=== PATIENT | female | born 1950 | race Hispanic/Latino ===

== ENCOUNTER 2019-12-12 12:42 | Emergency (ER) | payer MEDICARE ==
[~2019-12-12] VITALS: Ht 154.9 cm; Wt 85.8 kg
[2019-12-12] MEDS ORDERED: HYDROXYUREA500 MG (13:25)
[2019-12-12] MEDS ORDERED: ASPIRIN EC81 MG PO (13:25)
[2019-12-12] MEDS ORDERED: LOSARTAN POTAS100 MG PO (13:25)
[2019-12-12] MEDS ORDERED: HYDROCHLOROTHIA25 MG (13:25)
[2019-12-12] MEDS ORDERED: HYDROCODONE/APAP 5MG-325MG TAB PO ONE (13:30)
[2019-12-12] MEDS ORDERED: KETOROLAC TROMETHAMINE 60 MG/2 ML VIAL IM ONE (13:30)
--- NOTE | 2019-12-12 13:52 | Emergency Department Note ---
History of Present Illnes History of Present Illness Chief Complaint: rgt lbp radiating to buttock History of Present Illness This is a 69 year old female. was doing well prior to this. Historian: Patient Arrival Mode: Car Additional Treatment CARBU[employer]OR MECH[employer]IC: 0920 1000mg tylenol History limited by: condition of the patient Central Office Associate Required: No Onset (how long ago): day(s) (3) Location: rgt lower back Quality: sharp Radiation: Denies non-radiation Severity: moderate Onset quality: gradual Duration (how long): day(s) (3) Timing of current episode: constant Progression: worsening Chronicity: new Context: Denies recent illness, Denies recent surgery, Denies recent immobilization, Denies recent travel, Denies trauma/injury, Denies new medications, Denies hx of DVT/PE, Denies non-compliance w/ medications Relieving factors: none Exacerbating factors: movement Associated symptoms: Reports denies other symptoms Treatments prior to arrival: none Past Medical/Family History Physician Review I have reviewed the patient's past medical and family history. Any updates have been documented here. Past Medical History Recent Fever: No Clinical Suspicion of Infectio: No New/Unexplained Change in Ment: No Past Medical History: Hypertension, Cancer Other Medical History: Right eye lymphoma Thrombocytopenia Cancer of white blood cells Past Surgical History: Cholecysctectomy, Appendectomy Other Surgery: pilonidal cyst Social History Smoking Cessation: Never Smoker Counseling Performed: No Alcohol Use: None Any Illegal Drug Use: No Physically hurt or threatened: No Other Any Pre-Existing Lines (PICC,: No Review of Systems Review of Systems Constitutional: Reports no symptoms EENTM: Reports no symptoms Cardiovascular: Reports no symptoms Respiratory: Reports no symptoms Gastrointestinal: Reports no symptoms Genitourinary: Reports no symptoms Musculoskeletal: Reports as per HPI, Reports back pain Integumentary: Reports no symptoms Neurological: Reports no symptoms Psychological: Reports no symptoms Endocrine: Reports no symptoms Hematological/Lymphatic: Reports no symptoms Review of other systems: All other systems negative Physical Exam Related Data Allergies: Coded Allergies: No Known Allergies (Unverified , 12/12/19) Triage Vital Signs Vital Signs Date Time Temp Pulse Resp B/P (MAP) Pulse Ox O2 Delivery O2 Flow Rate FiO2 12/12/19 12:47 98.8 105 16 191/95 97 Room Air Physical Exam CONSTITUTIONAL Constitutional: Present well-developed, Present well-nourished HENT HENT: Present normocephalic, Present atraumatic, Present oropharynx clear/moist, Present nose normal HENT L/R: Present left ext ear normal, Present right ext ear normal EYES Eyes: Reports PERRL, Reports conjunctivae normal NECK Neck: Present ROM normal PULMONARY Pulmonary: Present effort normal, Present breath sounds normal CARDIOVASCULAR Cardiovascular: Present regular rhythm, Present heart sounds normal, Present capillary refill normal, Present normal rate GASTROINTESTINAL Abdominal: Present soft, Present nontender, Present bowel sounds normal GENITOURINARY Genitourinary: Present exam deferred SKIN Skin: Present warm, Present dry MUSCULOSKELETAL Musculoskeletal: Present ROM normal, Present tenderness (RGT CVA TENDERNESS) NEUROLOGICAL Neurological: Present alert, Present oriented x 3, Present no gross motor or sensory deficits PSYCHOLOGICAL Psychological: Present mood/affect normal, Present judgement normal Results Laboratory Lab results reviewed: Yes Laboratory comments ua= +andre Assessment & Plan Medical Decision Making MDM sciatica, uti Reassessment Reassessment time: 14:44 Reassessment pain has decreased Assessment & Plan Final Impression: (1) Sciatic nerve pain (2) UTI (urinary tract infection) Depart Disposition: HOME, SELF-CARE Last Vital Signs Date Time Temp Pulse Resp B/P (MAP) Pulse Ox O2 Delivery O2 Flow Rate FiO2 12/12/19 12:47 98.8 105 16 191/95 97 Room Air Home Meds Active Scripts Sulfamethoxazole/Trimethoprim (BACTRIM DS TABLET) 1 Each Tablet, 1 TAB PO Q12H, #20 TAB Prov:ZAHIDA TARIQ 12/12/19 Cyclobenzaprine Hcl (FLEXERIL) 5 Mg Tablet, 10 MG PO Q8H PRN for SEVERE PAIN (7- 10), #20 TAB TAKE AFTER PREDNISONE TO CONTROL PAIN IF NEED BE Prov:ZAHIDA TARIQ 12/12/19 Prednisone (PREDNISONE) 20 Mg Tab, 60 MG PO DAILY PRN for MODERATE PAIN (4-6), #15 TAB take 3 20 mg pills all at once Prov:ZAHIDA TARIQ 12/12/19 Ondansetron (ONDANSETRON ODT) 8 Mg Tab.rapdis, 4 MG PO Q4HR PRN for NAUSEA AND VOMITING, #30 TAB Prov:ZAHIDA TARIQ 12/12/19 Reported Medications Aspirin (ASPIRIN EC) 81 Mg Tablet.dr, 81 MG PO DAILY, #30 TAB 12/12/19 Losartan Potassium (LOSARTAN POTASSIUM) 100 Mg Tablet, 100 MG PO DAILY, TAB 12/12/19 Hydrochlorothiazide (HYDROCHLOROTHIAZIDE) 25 Mg Tablet, 25 MG DAILY, #30 TAB 12/12/19 Hydroxyurea (HYDROXYUREA) 500 Mg Capsule, DAILY 12/12/19 Medications in the ED Ketorolac Tromethamine 60 mg ONCE ONCE IM ; Start 12/12/19 at 13:30; Stop 12/12/19 at 13:31 Acetaminophen/ Hydrocodone Bitart 1 ea ONCE ONCE PO ; Start 12/12/19 at 13:30; Stop 12/12/19 at 13:31 ZAHIDA TARIQ Dec 12, 2019 13:52
[2019-12-12] MEDS ORDERED: KETOROLAC TROMETHAMINE 60 MG/2 ML VIAL ONE (14:21)
[2019-12-12] MEDS ORDERED: ONDANSETRON HCL 4 MG ORAL DISINTEGRATING TAB ONE (14:21)
[2019-12-12] MEDS ORDERED: HYDROCODONE/APAP 5MG-325MG TAB ONE (14:22)
[2019-12-12] MEDS ORDERED: ONDANSETRON HCL 4 MG ORAL DISINTEGRATING TAB PO ONE (14:30)
[2019-12-12] MEDS ORDERED: ONDANSETRON ODT8 MG PO (14:50)
[2019-12-12] MEDS ORDERED: CYCLOBENZAPRINE5 MG PO (14:50)
[2019-12-12] MEDS ORDERED: PREDNISONE20 MG PO (14:50)
[2019-12-12] MEDS ORDERED: BACTRIM DS TAB1 EACH PO (14:50)
[2019-12-12 15:30] VITALS: BP 177/90
== END 2019-12-12 15:07 | disposition home or self-care (01) ==
LOC: FSED 12:42
DX: M54.41 Lumbago with sciatica, right side (principal); N39.0 Urinary tract infection, site not specified; I10 Essential (primary) hypertension; D69.6 Thrombocytopenia, unspecified; Z85.72 Personal history of non-Hodgkin lymphomas
CPT/HCPCS: 81003; 96372; 99283

== ENCOUNTER 2024-01-06 18:53 | Emergency (ER) | payer MEDICARE ==
[~2024-01-06] VITALS: Ht 154.9 cm; Wt 90.7 kg
[~2024-01-06 18:53] MED LIST: ASPIRIN EC81 MG PO; BACTRIM DS TAB1 EACH PO; CYCLOBENZAPRINE5 MG PO; HYDROCHLOROTHIA25 MG; HYDROXYUREA500 MG; LOSARTAN POTAS100 MG PO; ONDANSETRON ODT8 MG PO; PREDNISONE20 MG PO
[2024-01-06] MEDS: CEPHALEXIN MONOHYDRATE 250 MG CAP PO ONE (20:12)
[2024-01-06] MEDS: BACITRACIN ZINC 0.9GM TP ONE (20:13)
[2024-01-06] MEDS: LIDOCAINE HCL 1% LOCAL INJ 20 ML VIAL INJ ONE (20:13)
[2024-01-06] MEDS ORDERED: CEPHALEXIN500 MG PO (20:51)
[2024-01-06] MEDS ORDERED: MUPIROCIN22 GM TOP (20:51)
[2024-01-06] MEDS ORDERED: PERIDEX473 M1 PO (20:53)
[2024-01-06 22:15] VITALS: PULSE 112; RESP 18; TEMP 98.4; O2SAT 94
== END 2024-01-06 22:05 | disposition home or self-care (01) ==
LOC: FSED 19:02
DX: S52.692A Other fracture of lower end of left ulna, initial encounter for closed fracture (principal); S01.511A Laceration without foreign body of lip, initial encounter; W01.0XXA Fall on same level from slipping, tripping and stumbling without subsequent striking against object, initial encounter; Y93.01 Activity, walking, marching and hiking; Y92.89 Other specified places as the place of occurrence of the external cause; I10 Essential (primary) hypertension; Z86.2 Personal history of diseases of the blood and blood-forming organs and certain disorders involving the immune mechanism
CPT/HCPCS: 12013; 29125; 70450; 70486; 73110; 99284; J2001

== ENCOUNTER 2024-01-12 13:18 | Emergency (ER) | payer MEDICARE ==
[~2024-01-12] VITALS: Ht 154.9 cm; Wt 90.7 kg
[~2024-01-12 13:18] MED LIST changes: +CEPHALEXIN500 MG PO; +MUPIROCIN22 GM TOP; +PERIDEX473 M1 PO
[2024-01-12 13:22] VITALS: PULSE 89; RESP 18; TEMP 98.2
[2024-01-12 14:25] VITALS: BP 142/80; PULSE 89; RESP 18; TEMP 98.2; O2SAT 99
== END 2024-01-12 14:18 | disposition home or self-care (01) ==
LOC: FSED 13:24
DX: Z48.02 Encounter for removal of sutures (principal)
CPT/HCPCS: 99283